=== PATIENT | male | born 1985 | race Two or more races ===

== ENCOUNTER 2018-06-09 13:55 | Emergency (ER) | payer SELFPAY ==
[~2018-06-09] VITALS: Ht 170.2 cm; Wt 68.0 kg
[2018-06-09] MEDS ORDERED: MORPHINE SULFATE 10 MG/ML VIAL. IV ONE (15:30)
--- NOTE | 2018-06-09 16:14 | PHYS DOC ---
Past Medical History Past Medical History: No Pertinent History Past Surgical History: No Surgical History Alcohol Use: None Drug Use: None Adult General Chief Complaint Chief Complaint: ABSCESS HPI HPI Patient is a 33 year old male with no significant medical history who presents today complaining of a right inguinal hernia for 4 months. Patient states typically the hernia is reducible, he states today he went to work and he was unable to reduce it. Review of Systems Review of Systems Constitutional: Denies fever or chills [] Eyes: Denies change in visual acuity, redness, or eye pain [] HENT: Denies nasal congestion or sore throat [] Respiratory: Denies cough or shortness of breath [] Cardiovascular: No additional information not addressed in HPI [] GI: Denies abdominal pain, nausea, vomiting, bloody stools or diarrhea [] : Reports right inguinal hernia. Denies dysuria or hematuria [] Musculoskeletal: Denies back pain or joint pain [] Integument: Denies rash or skin lesions [] Neurologic: Denies headache, focal weakness or sensory changes [] All other systems were reviewed and found to be within normal limits, except as documented in this note. Current Medications Current Medications Current Medications Medications (Trade) Dose Ordered Sig/Alicia Start Time Stop Time Status Last Admin Dose Admin Info (CONTRAST GIVEN -- Rx MONITORING) 1 each PRN DAILY PRN 06/09/18 17:15 06/09/18 18:53 DC Iohexol (Omnipaque 300 Mg/ml) 75 ml 1X ONCE 06/09/18 17:00 06/09/18 17:01 DC 06/09/18 17:06 75 ML Morphine Sulfate (Morphine Sulfate) 5 mg 1X ONCE 06/09/18 15:30 06/09/18 15:44 DC 06/09/18 16:56 5 MG Allergies Allergies Allergies Coded Allergies Type Severity Reaction Last Updated Verified No Known Drug Allergies 06/09/18 No Physical Exam Physical Exam Constitutional: Well developed, well nourished, no acute distress, non-toxic appearance. [] HENT: Normocephalic, atraumatic, bilateral external ears normal, oropharynx moist, no oral exudates, nose normal. [] Eyes: PERRLA, EOMI, conjunctiva normal, no discharge. [] Neck: Normal range of motion, no tenderness, supple, no stridor. [] Cardiovascular:Heart rate regular rhythm, no murmur [] Lungs & Thorax: Bilateral breath sounds clear to auscultation [] Abdomen: Bowel sounds normal, soft, no tenderness, no masses, no pulsatile masses. [] Male , right inguinal to testicles with moderate mass consistent with an inguinal hernia, the hernia is reducible. Patient himself with my assistance was able to reduce it. Skin: Warm, dry, no erythema, no rash. [] Back: No tenderness, no CVA tenderness. [] Extremities: No tenderness, no cyanosis, no clubbing, ROM intact, no edema. Right ankle bracelet from immigration. Neurologic: Alert and oriented X 3, normal motor function, normal sensory function, no focal deficits noted. [] Psychologic: Affect normal, judgement normal, mood normal. [] Current Patient Data Vital Signs Vital Signs Date Time Temp Pulse Resp B/P (MAP) Pulse Ox O2 Delivery O2 Flow Rate FiO2 06/09/18 17:40 67 16 146/73 (97) 98 Room Air 06/09/18 15:15 97.9 97.9 Lab Values Laboratory Tests Test 06/09/18 16:15 06/09/18 16:30 Urine Collection Type Unknown Urine Color Yellow Urine Clarity Clear Urine pH 8.0 Urine Specific [place] 1.010 Urine Protein Negative mg/dL (NEG-TRACE) Urine Glucose (UA) Negative mg/dL (NEG) Urine Ketones (Stick) Negative mg/dL (NEG) Urine Blood Negative (NEG) Urine Nitrite Negative (NEG) Urine Bilirubin Negative (NEG) Urine Urobilinogen Dipstick 0.2 mg/dL (0.2 mg/dL) Urine Leukocyte Esterase Negative (NEG) Urine RBC 0 /HPF (0-2) Urine WBC 0 /HPF (0-4) Urine Squamous Epithelial Cells None /LPF Urine Bacteria 0 /HPF (0-FEW) White Blood Count 6.5 x10^3/uL (4.0-11.0) Red Blood Count 5.35 x10^6/uL (4.30-5.70) Hemoglobin 16.1 g/dL (13.0-17.5) Hematocrit 45.8 % (39.0-53.0) Mean Corpuscular Volume 86 fL (79-100) Mean Corpuscular Hemoglobin 30 pg (25-35) Mean Corpuscular Hemoglobin Concent 35 g/dL (31-37) Red Cell Distribution Width 12.6 % (11.5-14.5) Platelet Count 205 x10^3/uL (140-400) Neutrophils (%) (Auto) 60 % (31-73) Lymphocytes (%) (Auto) 30 % (24-48) Monocytes (%) (Auto) 8 % (0-9) Eosinophils (%) (Auto) 3 % (0-3) Basophils (%) (Auto) 0 % (0-3) Neutrophils # (Auto) 3.9 x10^3uL (1.8-7.7) Lymphocytes # (Auto) 1.9 x10^3/uL (1.0-4.8) Monocytes # (Auto) 0.5 x10^3/uL (0.0-1.1) Eosinophils # (Auto) 0.2 x10^3/uL (0.0-0.7) Basophils # (Auto) 0.0 x10^3/uL (0.0-0.2) Sodium Level 140 mmol/L (136-145) Potassium Level 4.1 mmol/L (3.5-5.1) Chloride Level 102 mmol/L (98-107) Carbon Dioxide Level 32 mmol/L (21-32) Anion Gap 6 (6-14) Blood Urea Nitrogen 12 mg/dL (8-26) Creatinine 0.8 mg/dL (0.7-1.3) Estimated GFR (Cockcroft-Gault) 110.7 BUN/Creatinine Ratio 15 (6-20) Glucose Level 97 mg/dL (70-99) Calcium Level 9.2 mg/dL (8.5-10.1) Total Bilirubin 0.6 mg/dL (0.2-1.0) Aspartate Amino Transferase (AST) 21 U/L (15-37) Alanine Aminotransferase (ALT) 23 U/L (16-63) Alkaline Phosphatase 63 U/L (46-116) Total Protein 8.1 g/dL (6.4-8.2) Albumin 4.4 g/dL (3.4-5.0) Albumin/Globulin Ratio 1.2 (1.0-1.7) Laboratory Tests 06/09/18 16:30 Laboratory Tests 06/09/18 16:30 EKG EKG [] Radiology/Procedures Radiology/Procedures []PROCEDURE: CT ABD PELV W/ IV CONTRST ONLY PQRS Compliance statement: One or more of the following individualized dose reduction techniques were utilized for this examination: 1. Automated exposure control. 2. Adjustment of the mA and/or kV according to patient size. 3. Use of iterative reconstruction technique. Indication:RT INGUINAL PAIN X 4 MONTHS, NO PRIORS, [id number] 75ML TECHNIQUE: CT abdomen and pelvis with IV contrast with multiplanar reformats. COMPARISON: None FINDINGS: Heart is normal in size. No pericardial or pleural effusion. Clear lung bases liver, spleen, gallbladder, pancreas, adrenals and kidneys are within normal limits. No enlarged retroperitoneal or pelvic adenopathy. No free pelvic fluid or ascites. Right inguinal hernia is seen containing short loop of small bowel without evidence of bowel obstruction. Urinary bladder is within normal limits. The prostate and seminal vesicles show no large mass. No pneumoperitoneum. No suspicious bony lesion. IMPRESSION: Right inguinal hernia containing short loop of small bowel without evidence of bowel obstruction. Electronically signed by: Mika Meza DO (06/09/2018 5:29 PM) [facility] DICTATED and SIGNED BY: MIKA MEZA DO DATE: 06/09/18 1726 Course & Med Decision Making Course & Med Decision Making Pertinent Labs and Imaging studies reviewed. (See chart for details) This is a 33-year-old male patient presented to the ED today with right inguinal hernia, the hernia is reducible. UA negative. CBC, CMP are normal. CT of the abdomen and pelvic was noted Right inguinal hernia containing short loop of small bowel without evidence of bowel obstruction. 17:51 Patient himself has reduced the hernia currently he his pain free and it has been over one hr and the hernia has not popped out, patient will be d/c to home. Was provided instructions to follow-up with Gen. surgery in the course of this week or next. Provided return precautions. Discharged in stable condition. Dragon Disclaimer Dragon Disclaimer This electronic medical record was generated, in whole or in part, using a voice recognition dictation system. Departure Departure Impression: Primary Impression: Inguinal hernia Disposition: HOME, SELF-CARE Condition: STABLE Referrals: NO PCP (PCP) JIN STRICKLAND MD call him tomorrow for a follow up appointment in the clinic Patient Instructions: Inguinal Hernia, Adult Additional Instructions: You have right inguinal hernia. Please contact the general surgeon provided tomorrow morning and set up a follow up appointment. Dr. Strickland [address] [place] [address] Phone number [phone] Scripts Diclofenac Sodium (DICLOFENAC SODIUM) 50 Mg Tablet.dr 1 TAB PO BID, #30 TAB 0 Refills Prov: TIFFANY RUIZ [employer] 06/09/18 Problem Qualifiers Primary Impression: Inguinal hernia Obstruction and gangrene presence: without obstruction or gangrene Laterality : unilateral Recurrence: recurrent Qualified Codes: K40.91 - Unilateral inguinal hernia, without obstruction or gangrene, recurrent TIFFANY RUIZ [employer] Jun 09, 2018 16:13
[2018-06-09 16:29] LABS: BILIRUBIN,URINE NEGATIVE (NEG); CLARITY,URINE CLEAR; COLOR,URINE YELLOW; NITRITE,URINE NEGATIVE (NEG); PROTEIN,URINE NEGATIVE (NEG-TRACE); UROBILINOGEN,URINE 0.2 mg/dL (0.2 mg/dL)
[2018-06-09 16:44] LABS: BACTERIA,URINE 0 /HPF (0-FEW); RBC,URINE 0 /HPF (0-2); WBC,URINE 0 /HPF (0-4)
[2018-06-09 16:46] LABS: BASO % 0 % (0-3); EOS # 0.2 x10^3/uL (0.0-0.7); EOS % 3 % (0-3); HEMATOCRIT 45.8 % (39.0-53.0); HEMOGLOBIN 16.1 g/dL (13.0-17.5); LYMPH # 1.9 x10^3/uL (1.0-4.8); LYMPH % 30 % (24-48); MEAN CORPUSCULAR HEMOGLOBIN 30 pg (25-35); MEAN CORPUSCULAR HGB CONC 35 g/dL (31-37); MEAN CORPUSCULAR VOLUME 86 fL (79-100); MONO # 0.5 x10^3/uL (0.0-1.1); MONO % 8 % (0-9); NEUT # 3.9 x10^3uL (1.8-7.7); NEUT % 60 % (31-73); PLATELET COUNT 205 x10^3/uL (140-400); RED BLOOD COUNT 5.35 x10^6/uL (4.30-5.70); RED CELL DISTRIBUTION WIDTH 12.6 % (11.5-14.5); WHITE BLOOD COUNT 6.5 x10^3/uL (4.0-11.0)
[2018-06-09 16:57] LABS: CALCIUM 9.2 mg/dL (8.5-10.1); CREATININE 0.8 mg/dL (0.7-1.3); GFR 110.7; POTASSIUM 4.1 mmol/L (3.5-5.1)
[2018-06-09] MEDS ORDERED: IOHEXOL 300 MG/ML 100ML VIAL. IV ONE (17:00)
[2018-06-09 17:02] LABS: ALBUMIN 4.4 g/dL (3.4-5.0); ALBUMIN/GLOBULIN RATIO 1.2 (1.0-1.7); TOTAL BILIRUBIN 0.6 mg/dL (0.2-1.0); TOTAL PROTEIN 8.1 g/dL (6.4-8.2)
[2018-06-09] MEDS ORDERED: CONTRAST GIVEN. MC PRN (17:15)
--- NOTE | 2018-06-09 17:33 | RAD ---
PQRS Compliance statement: One or more of the following individualized dose reduction techniques were utilized for this examination: 1. Automated exposure control. 2. Adjustment of the mA and/or kV according to patient size. 3. Use of iterative reconstruction technique. Indication:RT INGUINAL PAIN X 4 MONTHS, NO PRIORS, [id number] 75ML TECHNIQUE: CT abdomen and pelvis with IV contrast with multiplanar reformats. COMPARISON: None FINDINGS: Heart is normal in size. No pericardial or pleural effusion. Clear lung bases liver, spleen, gallbladder, pancreas, adrenals and kidneys are within normal limits. No enlarged retroperitoneal or pelvic adenopathy. No free pelvic fluid or ascites. Right inguinal hernia is seen containing short loop of small bowel without evidence of bowel obstruction. Urinary bladder is within normal limits. The prostate and seminal vesicles show no large mass. No pneumoperitoneum. No suspicious bony lesion. IMPRESSION: Right inguinal hernia containing short loop of small bowel without evidence of bowel obstruction. Electronically signed by: Mika Meza DO (06/09/2018 5:29 PM) [facility]
[2018-06-09 17:40] VITALS: BP 146/73
[2018-06-09] MEDS ORDERED: DICL50TA4 PO (18:00)
== END 2018-06-09 18:27 | disposition home or self-care (01) ==
LOC: ER 13:55
DX: K40.91 Unilateral inguinal hernia, without obstruction or gangrene, recurrent (principal)
CPT/HCPCS: 36415; 74177; 80053; 81001; 85025; 96374; 99284; J2270; Q9967

== ENCOUNTER 2018-08-03 10:26 | Day surgery (SDC) | payer OTHER ==
[~2018-08-03] VITALS: Ht 174 cm; Wt 70.3 kg
[~2018-08-03 10:26] MED LIST: BUPIVAC MPF-EPI 0.5%-1:200000 30 ML VIAL. ONE; DICL50TA4 PO; HYDROmorphone 2 MG/ML VIAL IV PRN; IBUP100T6 PO; IV RINGERS,LACTATED 1000ML 1,000 ML IV SCH; LIDOCAINE 1% PF 2 ML VIAL. ID PRN; MORPHINE SULFATE 4 MG/ML VIAL. IV PRN; ONDANSETRON PF 4 MG/2 ML VIAL. IV PRN; PROCHLORPERAZINE 10 MG/2 ML VIAL. IV PRN; fentaNYL PF VIAL 100 MCG/2 ML VIAL IV PRN
[2018-08-03] MEDS ORDERED: ONDANSETRON PF 4 MG/2 ML VIAL. ONE (11:27)
[2018-08-03] MEDS ORDERED: LIDOCAINE 2% PF 5 ML VIAL. ONE (11:27)
[2018-08-03] MEDS ORDERED: DEXAMETHASONE SOD PHOS 20 MG/5 ML VIAL. ONE (11:27)
[2018-08-03] MEDS ORDERED: PROPOFOL 20 ML IV ONE (11:27)
[2018-08-03] MEDS ORDERED: MIDAZOLAM HCL/PF 2 MG/2 ML VIAL. ONE (11:27)
[2018-08-03] MEDS ORDERED: ROCURONIUM 50 MG/5 ML VIAL. ONE (11:28)
[2018-08-03] MEDS ORDERED: fentaNYL PF VIAL 100 MCG/2 ML VIAL ONE ×2 (11:28→13:04)
[2018-08-03] MEDS ORDERED: KETOROLAC 30 MG/ML INJ FOR OR. INJ ONE (12:59)
[2018-08-03] MEDS ORDERED: SEVOFLURANE 61 TO 120 MINUTES. IH ONE (13:04)
[2018-08-03] MEDS ORDERED: ESMOLOL 100 MG/10 ML VIAL. IVP ONE (13:37)
--- NOTE | 2018-08-03 14:20 | PDOC4 ---
Operative Note Operative Note Date: 08/03/2018 Preoperative diagnosis: Right inguinal hernia Postoperative diagnosis: Same Procedure: Robotic-assisted laparoscopic right inguinal hernia repair with mesh Surgeon: Suraj Specimen: None Patient: Patient is a 33-year-old male who has a painful right groin bulge has been present for about a year and getting larger suture of robotic-assisted laparoscopic right inguinal hernia repair with mesh was explained to the patient in detail all risks and benefits were also discussed including bleeding infection injury to intra-abdominal contents possibly necessitating further open operations. The patient seemed to understand and gave both verbal and written consent to have the procedure performed. Patient was taken to the operating room placed in supine position general anesthesia was initiated once patient was sleep and intubated he was placed in low lithotomy position and his abdomen was prepped and draped usual sterile fashion using ChloraPrep. An area just above the umbilicus was injected with quarter percent Marcaine with epinephrine incision was made low blade scalpel a Veress needle was placed within the abdomen creating pneumoperitoneum once this complete 8mm da [place] port was placed and the camera was placed within the abdomen which was inspected it was noted that there is a large right inguinal hernia left side appeared normal. A 8 mm port was placed in the left mid abdomen and one in the right mid abdomen all under direct visualization. Surgeon went to the robotic console using a grasper and Endo Guilherme scissors the peritoneum over the right groin was incised a flap was propagated inferiorly reducing the hernia sac and its contents. At this point a large Bard 3-D max mesh for the right side was placed over the floor of the peritoneum covering the hernia defect the peritoneum was then closed over the mesh with a running 20V LOC absorbable suture. The peritoneum was reduced all ports were removed surgeon return to the operative field to close the port sites with 40 septic Monocryl Mastisol Steri- Strips and island dressings were applied. The patient was awakened and extubated in the operating room taken recovery in stable condition all sponge instrument needle counts listed as correct estimated blood loss 5 mL ANIVAL DELANEY MD Aug 03, 2018 14:20
--- NOTE | 2018-08-03 14:21 | DISCH ---
DISCHARGE INSTRUCTIONS Condition on Discharge Condition on Discharge: Stable Activity After Discharge Activity Instructions for Disc: Avoid exertion Other activity instructions: no lifting more than 20 pounds for 2 weeks Diet after Discharge Diet after Discharge: Regular Wound Incision Care Other wound/incision instructi: Eva shower in 24 hours Contacting the DRRichard after DC Call your doctor for: If your condition worsens Follow-Up Follow up with: Dr. Delaney in 2 weeks ANIVAL DELANEY MD Aug 03, 2018 14:21
[2018-08-03] MEDS ORDERED: OXYC1TAB15 PO (14:47)
[2018-08-03] MEDS ORDERED: oxyCODONE/APAP 5/325 1 TAB TABLET PO ONE ×2 (15:00)
[2018-08-03 16:15] VITALS: BP 132/84
== END 2018-08-03 17:30 | disposition home or self-care (01) ==
LOC: SURG 10:26
PROVIDERS: ATTEND Surgery
DX: K40.90 Unilateral inguinal hernia, without obstruction or gangrene, not specified as recurrent (principal); Z79.899 Other long term (current) drug therapy; Z98.890 Other specified postprocedural states
CPT/HCPCS: 49650; A7015; C1781; J0696; J0780; J1100; J1885; J2001; J2250; J2405; J2704; J3010; J3490; S2900